=== PATIENT | female | born 1975 | race African-American/Black ===

== ENCOUNTER 2019-10-05 08:59 | Outpatient (CLI) | payer OTHER | END 2019-10-05 19:51 | disposition home or self-care (01) | LOC: RAD 08:59 | DX: M79.641 Pain in right hand (principal) ==

== ENCOUNTER 2021-07-13 19:25 | Emergency (ER) | payer OTHER ==
[~2021-07-13] VITALS: Ht 157.5 cm; Wt 68.0 kg
[2021-07-13 19:34] VITALS: TEMP 99.7
[2021-07-13 20:02] LABS: PLATELET COUNT 220 K/uL (152-353)
[2021-07-13 20:14] LABS: POTASSIUM 4.5 mmol/L (3.6-5.2)
[2021-07-13 21:33] LABS: PARTIAL THROMBOPLASTIN TIME 27.2 SECONDS (24.5-33.6)
[2021-07-13 22:18] VITALS: BP 135/67
== END 2021-07-13 22:19 | disposition short-term general hospital (02) ==
LOC: ED 19:25
PROVIDERS: Hospitalist
DX: K35.890 Other acute appendicitis without perforation or gangrene (principal); Z11.52 Encounter for screening for COVID-19
CPT/HCPCS: 36415; 80053; 81000; 83690; 85027; 85610; 85730; 87635; 93005; 96360; 96365; 96375; 96376; 99285; J1170; J1885; J2405; J2543; Q9963; U0003